=== PATIENT | female | born 1980 | race African-American/Black ===

== ENCOUNTER 2020-06-12 08:18 | Outpatient (CLI) | payer OTHER, SELFPAY | END 2020-06-12 08:19 | disposition home or self-care (01) | PROVIDERS: PCP Physician Assistant | DX: H81.13 Benign paroxysmal vertigo, bilateral (principal) | CPT/HCPCS: 99199 ==

== ENCOUNTER 2020-07-03 08:37 | Outpatient (CLI) | payer OTHER, SELFPAY | END 2020-07-03 08:38 | disposition home or self-care (01) | LOC: ANHAUDIO 08:38 | PROVIDERS: PCP Physician Assistant | DX: H81.13 Benign paroxysmal vertigo, bilateral (principal) | CPT/HCPCS: 92540; 92546; 92557; 92567 ==